=== PATIENT | male | born 1955 | race Caucasian/White ===

== ENCOUNTER 2018-09-06 15:18 | Inpatient (IN) | payer OTHER ==
[~2018-09-06] VITALS: Ht 170.2 cm; Wt 73.0 kg
--- NOTE | 2018-09-06 15:20 | NUR ---
PT BBSELF FOR NEAR SYNCOPE AND FACIAL NUMBNESS; PT AAOX4, PT ON MONITOR, VSS, NAD NOTED, AT BEDSIDE
[2018-09-06 15:53] LABS: BASOPHILS # (AUTO) 0.1 /CMM (0.0-0.2); BASOPHILS % (AUTO) 1.3 % (0.0-2.0); HEMATOCRIT 44 % (39-51); HEMOGLOBIN 14.8 g/dL (13.5-17.5); LYMPHOCYTES # (AUTO) 2.4 /CMM (0.8-4.8); MEAN CORPUSCULAR HGB CONC 34 g/dl (31.0-36.0); MEAN CORPUSCULAR VOLUME 91 fL (80-96); MONOCYTES # (AUTO) 0.6 /CMM (0.1-1.30); MONOCYTES % (AUTO) 7.4 % (2.0-12.0); NEUTROPHILS # (AUTO) 5.1 /CMM (1.8-8.9); NEUTROPHILS % (AUTO) 60.3 % (43.0-81.0); PLATELET COUNT (AUTO) 355 /CMM (150-450); RED BLOOD CELL COUNT(AUTO) 4.82 MIL/uL (4.5-6.0); WHITE BLOOD COUNT (AUTO) 8.4 K/uL (4.3-11.0)
[2018-09-06] MEDS ORDERED: IV NS 0.9% 1,000 ML BAG IV ONE (16:00)
[2018-09-06] MEDS ORDERED: ASPIRIN 325 MG TABLET PO ONE (16:00)
[2018-09-06] MEDS ORDERED: IV NS 0.9% 250 ML IV ONE (16:04)
[2018-09-06] MEDS ORDERED: CT SWABBABLE VALVE TRANS SET 1 EA INFUS.SET MC ONE (16:04)
[2018-09-06] MEDS ORDERED: IOHEXOL-350 100 ML VIAL IV ONE (16:04)
[2018-09-06 16:11] LABS: CHOLESTEROL 216 mg/dL (<200); HDL CHOLESTEROL 43 mg/dL (40-60); LDL 150 mg/dL (0-99); TRIGLYCERIDES 206 mg/dL (30-150)
[2018-09-06] MEDS ORDERED: AMLO5TAB9 PO (16:11)
[2018-09-06 16:15] LABS: CALCIUM, SERUM 9.1 mg/dL (8.5-10.1); CARBON DIOXIDE 22 mmol/L (21-32); CHLORIDE 105 mmol/L (98-107); CREATININE 1.3 mg/dL (0.6-1.3); GLUCOSE 169 mg/dL (74-106); POTASSIUM 3.9 mmol/L (3.5-5.1); SODIUM SERUM 137 mmol/L (136-145); UREA NITROGEN, BLOOD 23 mg/dL (7-18)
[2018-09-06] MEDS ORDERED: ASPIRIN 325 MG TABLET ONE (16:17)
[2018-09-06 16:20] LABS: ALANINE AMINOTRANSFERASE 17 U/L (12-78); ALBUMIN 3.4 g/dL (3.4-5.0); ALKALINE PHOSPHATASE 77 U/L (46-116); ASPARTATE AMINOTRANSFERASE 14 U/L (15-37); BILIRUBIN,DIRECT 0.1 mg/dL (0.0-0.2); BILIRUBIN,TOTAL 0.3 mg/dL (0.2-1.0); TOTAL PROTEIN, SERUM 7.9 g/dL (6.4-8.2)
[2018-09-06] MEDS ORDERED: MAG HYDROX/AL HYDROX/SIMETH 30 ML UDC PO PRN (18:30)
--- NOTE | 2018-09-06 18:30 | NUR ---
CALLED FOR REPORT; NURSE NOT AVAILABLE
--- NOTE | 2018-09-06 18:54 | NUR ---
TEXTED DR. VOGT FOR MRI APPROVED
--- NOTE | 2018-09-06 19:06 | NUR ---
report given to gabriela scott for ghada
--- NOTE | 2018-09-06 19:44 | NUR ---
TRANSFERRED PT TO [facility]3/TELE VIA ACLS PROTOCOL
--- NOTE | 2018-09-06 19:45 | NUR ---
SCRAP WHEELERASSOCIATE PROFESSOR OF ARCHAEOLOGY NOTES Received patient from ER via [facility] accompanied by ER staff. Admitted to Tele- due to TIA under the service of Dr. Henderson. Assisted patient to bed comfortably. Patient able to ambulate from [place] to bed, steady gait, no c/o dizziness. Speech is clear, symmetrical facial features, no signs and symptoms of stroke noted. Belongings inventory completed by YANIV Stanton. Initial physical assessment done - no skin issues noted at this time, patient claimed no skin problems. On tele monitor - SR 72. Kept warmth and comfortable. Instructed on the use of call light, set at bedside within easy reach. Will continue to monitor accordingly.
[2018-09-06 20:00] VITALS: BP 157/101
--- NOTE | 2018-09-06 20:03 | NUR ---
MINERAL ENGINEER NOTES Patient taken to radiology via wheelchair accompanied by 2 rad techs.
--- NOTE | 2018-09-06 20:45 | NUR ---
FLORAL SPECIALIST NOTES Patient backed to room from radiology via wheelchair. On bed comfortably.
[2018-09-06] MEDS ORDERED: ATORVASTATIN 40 MG TABLET PO SCH (22:00)
[2018-09-07] VITALS: BP_SYST 136; BP_SYST 156; BP_DIAS 80; BP_DIAS 85
[2018-09-07] MEDS ORDERED: omeprazole PO (00:30)
[2018-09-07 04:00] VITALS: BP 142/82
--- NOTE | 2018-09-07 06:16 | NUR ---
UPKEEP WORKER CLOSING NOTES Patient asleep on semi-Fowle's position on bed. On tele monitor with SR noted. On RA, no SOB/respiratory distress noted. Remained stable throughout the shift, no new unusualities noted. Speech remained clear, no facial deformities noted, all extremities remained equally strong no weakness noted. Due meds given as ordered, no ASE noted. All needs attended. Kept bed low and locked, call light at bed side. Endorsed to the next shift.
--- NOTE | 2018-09-07 07:38 | NUR ---
DIRECTOR OF SOCIAL MEDIA MARKETING OPENING NOTES RECEIVED PT RESTING IN BED, AWAKE, AO X4; IN NO ACUTE SIGNS OF DISTRESS. BREATHING EVEN AND UNLABORED. NO PAIN OR ANY DISCOMFORT REPORTED AT THIS TIME. ON TELE MONITORING WITH NORMAL SINUS READING, HR OF 72. ON SL TO LAC G18, INTACT AND PATENT. AMBULATORY WITH BRP. PT ASSESSED, NO DRIFTS NOTED TO ALL EXTREMITIES. KEPT PT ON BED AT LOWEST, LOCKED POSITION WITH SR X2. KEPT CALL LIGHT AND FLUID WITHIN REACH. WILL CONTINUE TO MONITOR.
[2018-09-07 07:48] LABS: BASOPHILS # (AUTO) 0.1 /CMM (0.0-0.2); EOSINOPHILS % (AUTO) 4.6 % (0.0-6.0); HEMATOCRIT 46 % (39-51); LYMPHOCYTES # (AUTO) 1.9 /CMM (0.8-4.8); LYMPHOCYTES % (AUTO) 27.9 % (20.0-44.0); MEAN CORPUSCULAR HGB CONC 35 g/dl (31.0-36.0); MEAN CORPUSCULAR VOLUME 89 fL (80-96); MONOCYTES # (AUTO) 0.6 /CMM (0.1-1.30); MONOCYTES % (AUTO) 9.2 % (2.0-12.0); NEUTROPHILS # (AUTO) 3.8 /CMM (1.8-8.9); NEUTROPHILS % (AUTO) 57.3 % (43.0-81.0); PLATELET COUNT (AUTO) 325 /CMM (150-450); RED BLOOD CELL COUNT(AUTO) 5.15 MIL/uL (4.5-6.0); WHITE BLOOD COUNT (AUTO) 6.6 K/uL (4.3-11.0)
[2018-09-07 08:00] LABS: CALCIUM, SERUM 8.5 mg/dL (8.5-10.1); CREATININE 0.8 mg/dL (0.6-1.3); POTASSIUM 3.8 mmol/L (3.5-5.1)
[2018-09-07 08:04] LABS: THYROID STIMULATING HORMONE 0.841 uIU/mL (0.358-3.74)
[2018-09-07 08:43] VITALS: BP 126/78
[2018-09-07] MEDS ORDERED: ASPIRIN EC 325 MG TABLET.DR PO SCH (09:00)
[2018-09-07] MEDS ORDERED: CLOPIDOGREL BISULFATE 75 MG TABLET PO ONE ×2 (09:30→10:00)
[2018-09-07 09:55] LABS: APPEARANCE,URINE CLEAR (CLEAR); BILIRUBIN,URINE NEGATIVE (NEGATIVE); BLOOD, URINE NEGATIVE Ery/uL (NEGATIVE); COLOR,URINE YELLOW (YELLOW); KETONES,URINE NEGATIVE (NEGATIVE); LEUKOCYTE ESTERASE ,URINE NEGATIVE (NEGATIVE); NITRITE, URINE NEGATIVE (NEGATIVE); PROTEIN,URINE NEGATIVE (NEGATIVE); UGLUCOSE NEGATIVE (NEGATIVE); UROBILINOGEN,URINE 0.2 EU/dL (0.2)
--- NOTE | 2018-09-07 10:17 | NUR ---
RN NOTES PLAVIX 300MG X1 DOSE AT 0930, DUPLICATE ORDER. MEDICATION GIVEN AT 1000.
[2018-09-07] MEDS ORDERED: OMEPRAZOLE 20 MG CAPSULE.DR PO SCH (11:00)
[2018-09-07] MEDS ORDERED: PANTOPRAZOLE 40 MG TABLET.DR PO ONE (11:09)
[2018-09-07] MEDS ORDERED: CLOP75TA15 PO (11:40)
[2018-09-07] MEDS ORDERED: LISI10TA59 PO (11:40)
[2018-09-07] MEDS ORDERED: ATOR40TA PO (11:40)
[2018-09-07] MEDS ORDERED: ASPI-1169 PO (11:40)
--- NOTE | 2018-09-07 16:15 | NUR ---
MS AGRICULTURAL TECHNICIAN NOTES PT IN BED AWAKE, A/OX4 WITH SPOUSE PRESENT BEDSIDE. TOLERATING RA, WITHOUT DISTRESS NOTED. DENIES ANY PAIN OR DISCOMFORT AT THIS TIME. TO BE DISCHARGED HOME; ACCOMPANIED BY . DISCHARGE INSTRUCTIONS GIVEN TO PT AND . PRESCRIPTIONS GIVEN TO PT AND , REVIEWED AND EXPLAINED BENEFITS OF MEDS. PT WITH ALL BELONGINGS ACCOUNTED FOR. IV SL TO LAC G18, REMOVED AND APPLIED DRY DRESSING. PT IS AMBULATORY, ESCORTED PT AND TO ELEVATOR TO GO TO THE LOBBY. LEFT THE UNIT AT 1610.
[2018-09-08] MEDS ORDERED: LISINOPRIL (10MG) 10 MG TABLET PO SCH (09:00)
[2018-09-08] MEDS ORDERED: CLOPIDOGREL BISULFATE 75 MG TABLET PO SCH (09:00)
== END 2018-09-07 16:15 | disposition home or self-care (01) | DRG 69 ==
LOC: ER 15:20 → TELE 18:29 → MED 09-07 10:17
PROVIDERS: ADMIT Nurse Practitioner Acute Care; ATTEND Nurse Practitioner Acute Care
DX: G45.9 Transient cerebral ischemic attack, unspecified (principal); N17.0 Acute kidney failure with tubular necrosis; G92 Toxic encephalopathy; I50.42 Chronic combined systolic (congestive) and diastolic (congestive) heart failure; E78.5 Hyperlipidemia, unspecified; K21.9 Gastro-esophageal reflux disease without esophagitis; Z86.73 Personal history of transient ischemic attack (TIA), and cerebral infarction without residual deficits; Z82.49 Family history of ischemic heart disease and other diseases of the circulatory system; Z79.02 Long term (current) use of antithrombotics/antiplatelets; M50.122 Cervical disc disorder at C5-C6 level with radiculopathy; Z79.899 Other long term (current) drug therapy; I11.0 Hypertensive heart disease with heart failure; I34.0 Nonrheumatic mitral (valve) insufficiency; Z79.82 Long term (current) use of aspirin
CPT/HCPCS: 36415; 70450-TC; 70496-TC; 70498-TC; 70551-TC; 71045-TC; 80048-TC; 80061-TC; 80076-TC; 80305; 81000-TC; 84443-TC; 84484-TC; 85025-TC; 85652-TC; 85730-TC; 87081-TC; 93307-TC; G0378; J7030; J7050; Q9967